=== PATIENT | male | born 1960 | race Caucasian/White ===

== ENCOUNTER 2017-11-19 08:40 | Day surgery (SDC) | payer BC ==
[2017-11-17 13:43] VITALS: BMI 25.5
[2017-11-19] MEDS ORDERED: PROPOFOL 20 ML ONE ×2 (11:00→12:58)
[2017-11-19] MEDS ORDERED: MIDAZOLAM HCL 2 MG/2 ML SINGLE DOSE VIAL ONE ×2 (11:01)
[2017-11-19] MEDS ORDERED: LIDOCAINE HCL/PF 2% SDV 5ML VIAL ONE (11:24)
[2017-11-19] MEDS ORDERED: LIDOCAINE HCL 2% JELLY (5 ML/TUBE) ONE (11:24)
--- NOTE | 2017-11-19 13:19 | OP ---
Operative Note - Note: Operative Date: 11/19/17 Pre-Operative Diagnosis: Dupytren's Contracture Right Hand- Palm, and Fingers- Ring and small Operation: Right Hand Palmar and Digital Fasiectomies Post-Operative Diagnosis: Same as Pre-op Surgeon: Xavier Lee Anesthesia: General Specimens Removed: Palmar/Digital Fascia Operative Report Dictated: Yes
[2017-11-19] MEDS ORDERED: oxyCODONE HCL 5 MG TABLET PO PRN ×2 (13:25)
[2017-11-19] MEDS ORDERED: ONDANSETRON 4 MG/2 ML VIAL IVPUSH PRN (13:25)
[2017-11-19] MEDS ORDERED: PROMETHAZINE HCL 25 MG/1 ML VIAL IVPUSH PRN (13:25)
[2017-11-19] MEDS ORDERED: ACETAMINOPHEN 1000 MG/100 ML VIAL (NON FORMULARY) IVPB PRN (13:26)
[2017-11-19] MEDS ORDERED: KETOROLAC TROMETHAMINE 30 MG/1 ML VIAL IVPUSH ONE (13:26)
[2017-11-19] MEDS ORDERED: LACTATED RINGERS SOLUTION 1,000 ML IV SCH (13:30)
[2017-11-19] MEDS ORDERED: ACETAMINOPHEN INJECTION 100 ML IVPB ONE (13:41)
--- NOTE | 2017-11-19 14:12 | OP ---
AGE: 57 SEXL: Male DATE OF OPERATION: 11/19/2017 PREOPERATIVE DIAGNOSIS: Dupuytren contracture of right hand, palm and fingers. POSTOPERATIVE DIAGNOSIS: Dupuytren contracture of right hand, palm and fingers. PROCEDURE PERFORMED: Right hand palmar and digital fasciectomies (ring and small fingers). SURGEON: Xavier Kaur M.D. ANESTHESIA: General via LMA. PROCEDURE: The patient was on the operating table in supine position and the right arm on an arm table. General anesthesia was administered by the anesthesiologist. A right upper arm tourniquet was placed prior to prep and the right hand and forearm were prepped and draped in the usual sterile fashion. The right upper arm tourniquet was then inflated to 250 mmHg. The palmar and digital incisions were then outlined with a marking pen and the palmar and small finger incisions were made first. Incisions were made as marked and using a No. 15 scalpel blade, the palmar and digital bands were circumferentially dissected. The digital neurovascular bundles were identified on both sides of the cord and were protected. A natatory cord was appreciated between the ring and small fingers and this was dissected as well. The cord was removed in one piece and the tendon beneath was identified and was uninjured. The palmar dissection then continued in an undermining fashion radially and the palmar extent of the disease was dissected on the ring finger ray as well. The digital ring finger midline incision was made and the diseased cord in the ring finger was dissected circumferentially and excised. Neurovascular bundles were again protected. Good range of motion upon flexion and extension of the wrist was appreciated and closure was then performed. Closure was performed using No. 5-0 nylon suture in a continuous horizontal mattress fashion for all incisions. Sterile dressings were then applied consisting of Xeroform gauze and Kerlix gauze wrap, including gauze to protect the spaces between the fingers. A Kerlix wrap was then placed and a 4-inch fiberglass volar splint was fashioned and secured with a 4-inch Yves bandage. Tourniquet was then deflated without any difficulty. Total tourniquet time was 62 minutes. The patient was then awoken from anesthesia without difficulty and taken from the operating room to the recovery room in satisfactory condition having tolerated the procedure well. XAVIER KAUR M.D. [id number] cc: [place] [id number]
[2017-11-19 14:13] VITALS: TEMP 97.9
[2017-11-19] MEDS ORDERED: ONDANSETRON 4 MG/2 ML VIAL ONE (15:51)
[2017-11-19 18:06] VITALS: BP 145/80; PULSE 80
--- NOTE | 2017-11-23 16:29 | PATH ---
Surgical Pathology Report Patient Name: HO PEDRO [facility]. Rec. #: [id number] /Age/Gender: 1960 (Age: 57) / M Account: [id number] Location: [facility] SURGICAL Taken: 11/19/2017 Received: 11/20/2017 Reported: 11/23/2017 Physicians: Xavier Lee M.D. Specimen(s) Received TISSUE OF RIGHT HAND PALMAR FASCIA Clinical History Right Dupuytren's contracture small ring, thumb and palm Final Diagnosis HAND, RIGHT, FASCIA, PALMAR, AND DISTAL RING, RELEASE: PALMAR FIBROMATOSIS (DUPUYTREN'S CONTRACTURE). Electronically Signed Paloma Whalen M.D. Gross Description Received in formalin labeled "right hand Young fascia, ring finger distal fascia," is a 3.5 x 2.3 x 0.4 cm aggregate of hampton-thibodeaux portions of fibrous tissue. C Engineer sections are submitted in one cassette. /11/20/2017 saudi11/20/2017
== END 2017-11-19 18:07 | disposition home or self-care (01) ==
LOC: JASU-SURG 08:40
PROVIDERS: ATTEND Plastic Surgery
PROC: 0LN70ZZ Release Right Hand Tendon, Open Approach (ICD-10-PCS; 2017-11-19)
PROC: 0LN70ZZ Release Right Hand Tendon, Open Approach (ICD-10-PCS; 2017-11-19)
PROC: 0JNJ0ZZ Release Right Hand Subcutaneous Tissue and Fascia, Open Approach (ICD-10-PCS; principal; 2017-11-19 10:00)
DX: M72.0 Palmar fascial fibromatosis [Dupuytren] (principal)
CPT/HCPCS: 88304-TC; 94760; J0131